=== PATIENT | male | born 1955 | race Caucasian/White ===

== ENCOUNTER → 2018-12-06 | Outpatient (REF) | payer OTHER | END | disposition home or self-care (01) | DRG 554 | LOC: LAB 09:38 | PROVIDERS: ATTEND Nurse Practitioner | DX: M10.9 Gout, unspecified (principal) ==

== ENCOUNTER → 2018-12-27 | Outpatient (REF) | payer OTHER | END | disposition home or self-care (01) | DRG 305 | LOC: LAB 10:12 | PROVIDERS: ATTEND Nurse Practitioner | DX: I10 Essential (primary) hypertension (principal) ==